=== PATIENT | male | born 1985 | race African-American/Black ===

== ENCOUNTER 2017-02-24 07:41 | Emergency (ER) | payer MEDICAID ==
[~2017-02-24] VITALS: Ht 165.1 cm; Wt 79.0 kg
[~2017-02-24 07:41] MED LIST: INSU100V3 IJ
[2017-02-24] MEDS ORDERED: FAMOTIDINE 20MG TABLET PO ONE (08:15)
[2017-02-24] MEDS ORDERED: MAGNESIUM/ALUMINUM HYDROXIDE/SIMETHICONE 30ML UDC PO STA (08:15)
[2017-02-24 08:37] LABS: BASOPHILS % 0.6 % (0.0-2.0); LYMPHOCYTES % 33.5 % (20.0-50.0); MEAN CORPUSCULAR HEMOGLOBIN 23.5 pg (28.0-32.0); MEAN CORPUSCULAR VOLUME 74.5 fL (80.0-94.0); MEAN PLATELET VOLUME 8.6 fl (7.4-10.4); MONOCYTES % 7.7 % (2.0-8.0); NEUTROPHILS % 57.2 % (40.0-76.0); PLATELET 215 x1000/uL (130-400); RED CELL DISTRIBUTION WIDTH 12.4 % (11.6-14.6)
[2017-02-24 08:52] LABS: CARBON DIOXIDE 30 mEq/L (21-32); CHLORIDE 106 mEq/L (98-107)
[2017-02-24 09:50] LABS: PLATELET ESTIMATE NORMAL
[2017-02-24 10:30] VITALS: BP 120/71
== END 2017-02-24 10:43 | disposition home or self-care (01) ==
LOC: ER 08:16
DX: R10.13 Epigastric pain (principal); E10.9 Type 1 diabetes mellitus without complications; Z79.4 Long term (current) use of insulin
CPT/HCPCS: 36415; 80053; 82962; 83690; 85025; 99284